=== PATIENT | female | born 2005 | race Hispanic/Latino ===

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

== ENCOUNTER 2024-04-27 16:36 | Emergency (ER) | payer BC, MEDICAID ==
[~2024-04-27] VITALS: Ht 157.5 cm; Wt 93.0 kg
[~2024-04-27 16:36] MED LIST: MECL-302 PO
[2024-04-27 17:04] VITALS: BP 119/81; PULSE 83; RESP 20; TEMP 98.6; O2SAT 99
--- NOTE | 2024-04-27 17:20 | ERN ---
ED Note History of Present Illness Stated Complaint: BLURRED VISION, SOB, WEAK Chief Complaint: Headache Time Seen by MD: 16:50 Dictation: Patient is a 18-year-old female here with complaints of flu-like symptoms to include frontal headache, clear rhinitis with sore throat painful swallowing. She states she is also having ear pain to the left. Body aches. No fever no chills no nausea vomiting. She states she went on a trip with girls this weekend and several of the girls came back and were positive for influenza. She has taken nothing today prior to arrival for her symptoms no primary care doctor. Allergies: Coded Allergies: No Known Allergies (Unverified Allergy, Unknown, 10/28/22) Home Meds Active Scripts Oseltamivir Phosphate (Tamiflu) 75 Mg Cap, 75 MG PO BID for 5 Days, #10 CAP Prov:MAGEN ESTES [employer] 04/27/24 Amoxicillin/Potassium Clav (Amox Tr-K Clv 875-125 mg Tab) 875 Mg-125 Mg Tablet, 1 EACH PO BID for 7 Days, #14 TAB 0 Refills Prov:MAGEN ESTES [employer] 04/27/24 Meclizine HCl (Meclizine HCl) 25 Mg Tablet, 25 MG PO TID PRN for DIZZINESS for 7 Days, #21 TAB 0 Refills Prov:ENZO CORTEZ DO 10/28/22 Past Medical History Past Medical History: No Pertinent History Surgical History: None Social History: Negative History: Not Applicable RN Note Reviewed/Agreed w/PFSH: Yes Review of System Dictation CONSTITUTIONAL: Negative except for HPI fever chills HEAD/FACE: Negative except for HPI EENT: Negative except for HPI frontal headache, left ear pain, sinus congestion with sore throat RESPIRATORY: Negative except for HPI GASTROINTESTINAL/ABDOMINAL: Negative except for HPI GENITOURINARY: Negative except for HPI MUSCULOSKELETAL: Negative except for HPI INTEGUMENTARY: Negative except for HPI NEUROLOGICAL/PSYCH: Negative except for HPI HEMATOLOGIC/LYMPHATIC: Negative except for HPI All Systems Negative, Except as noted above. 13 point review of systems assessed and all negative except for above. Initial Vital Sign VS Vital Signs Date Time Temp Pulse Resp B/P (MAP) Pulse Ox O2 Delivery O2 Flow Rate FiO2 04/27/24 16:50 98.6 83 20 119/81 99 Room Air 0 04/27/24 17:04 21 Physical Exam Dictation Vital Signs reviewed General Appearance: Alert, oriented x 3, no acute distress, well developed, nourished. Head and Face: non-traumatic. Eyes: PERRL, pink conjunctivas, eyelid no trauma, anterior chamber with arcus senilis. Ears: Pinnas intact and no signs of trauma or erythema left otic canal with erythema swelling. Nose: No discharge, no bleeding. Oropharynx: Mo moderate pharyngeal erythema, tonsils no exudates, no abscesses noted, mucous membrane moist uvula midline, voice is clear Neck: Supple, non-tender, no thyromegaly, no masses, no JVD, no bruits Breast:Deferred Chest:No tenderness, no crepitus, no paradoxical movement, no retractions Lungs:Clear, well-ventilated, symmetric, no rales, no wheezing, no rhonchi, no stridor, good breath sounds bilaterally Heart: Regular rate, regular rhythm, no murmur, no gallops Vascular: no peripheral edema, Abdomen: Soft, positive bowel sounds, nondistended, no guarding, nontender, no rebound, no masses no hepatomegaly, no splenomegaly, no Molina's sign, no hernias. Rectal: Deferred Genital: Deferred Neurological: Normal speech, motor function intact, sensory function intact Musculoskeletal: Neck nontender, full range of motion, back nontender, full range of motion, Extremities: nontender, full range of motion Skin: Color pink, dry, no turgor, no rash, no lacerations, no abrasions, no contusions. Lymphatic: Deferred Results (Laboratory/Radiology) Laboratory/Radiology Labs Reviewed?: Yes ED Course ED Course 1809/patient negative for flu COVID and strep. Discharged home with a acute pharyngitis unspecified and exposure to influenza. Medical Decision Making MDM Medical discharge making based on swabs for flu COVID and strep. Patient treated for an acute sinus headache and feels better after treatment Discharged home on antibiotics for acute pharyngitis unspecified She will be given Tamiflu for influenza exposure. DX & DISP Disposition: Discharge Departure Impression: Primary Impression: Acute pharyngitis, unspecified Additional Impressions: Exposure to influenza, Sinus headache Condition: Stable Scripts Oseltamivir Phosphate (Tamiflu) 75 Mg Cap 75 MG PO BID for 5 Days, #10 CAP Prov: MAGEN ESTES [employer] 04/27/24 Amoxicillin/Potassium Clav (Amox Tr-K Clv 875-125 mg Tab) 875 Mg-125 Mg Tablet 1 EACH PO BID for 7 Days, #14 TAB 0 Refills Prov: MAGEN ESTES NP 04/27/24 Additional Instructions: Follow-up with primary care provider in 1 to 2 days. Take medications as directed here in the emergency room. Okay to continue home medications unless otherwise discussed during your visit in the emergency room today. Return to your nearest emergency room if symptoms worsen or if there is no improvement. Call 911 if you need immediate assistance. Take Tylenol or Motrin over-the-co unter as needed and if no contraindications are present. Increase oral hydration. A wound culture or urine culture was ordered here in the emergency room department please follow-up with primary care provider and advise them to get repeat ports from our facility. If you had any Patrice wrap/splints that were applied here, please do not remove them until you see your primary care or specialty. Take antibiotics and Tamiflu as directed until gone. , increase your water intake. , take Tylenol 1000 mg every 6-8 hours/[id number] as needed for headache or pain. No work or school until Wednesday05/01/2024 Referrals: NONE (PCP) Time of Disposition: 18:12 I have reviewed the case, and I agree with, Diagnosis and Plan I performed the substantive portion of the visit. I have reviewed and personally made and approve the management plan that is documented in the notes by myself or the [facility]. I acknowledge full responsibility for the patient's management plan. MAGEN ESTES NP Apr 27, 2024 17:20 AB TANG MD Apr 30, 2024 18:46
[2024-04-27 17:44] LABS: RAPID GROUP A STREP negative (NEGATIVE)
[2024-04-27 17:54] LABS: COVID19 (SARS ANTIGEN RAPID) PRESUMPTIVE NEGATIVE (NEGATIVE); INFLUENZA TYPE A Negative For Type A (NEGATIVE); INFLUENZA TYPE B Negative For Type B (NEGATIVE)
[2024-04-27] MEDS ORDERED: OSEL75 PO (18:13)
[2024-04-27] MEDS ORDERED: AMOX1TAB16 PO (18:13)
[2024-04-27] MEDS: acetaMINOPHEN 500 MG TABLET PO ONE (18:13)
== END 2024-04-27 18:16 | disposition home or self-care (01) ==
LOC: EDH 16:36
DX: J02.9 Acute pharyngitis, unspecified (principal); Z20.822 Contact with and (suspected) exposure to COVID-19; Z20.828 Contact with and (suspected) exposure to other viral communicable diseases; R51.9 Headache, unspecified; R53.1 Weakness; R06.02 Shortness of breath; H53.8 Other visual disturbances
CPT/HCPCS: 87426; 87804; 87880; 99283